=== PATIENT | female | born 1990 | race American Indian/Alaskan Native ===

== ENCOUNTER 2016-03-30 14:13 | Outpatient (CLI) | payer MEDICAID ==
[2016-03-30] MEDS ORDERED: LACTATED RINGERS 500 ML IV ONE (15:09)
[2016-03-30 15:38] VITALS: BP 107/70
[2016-03-30 15:53] LABS: Basophils % (Auto) 0.3 % (0.0-1.8); Eosinophils % (Auto) 0.5 % (0.0-4.3); Hematocrit 37.2 % (30.3-42.9); Hemoglobin 12.4 gm/dl (10.1-14.3); Mean Corpuscular HGB Conc 33 % (30-34); Mean Corpuscular Hemoglobin 32 pg (28-32); Mean Corpuscular Volume 95 fl (79-97); Platelet Count 239 K/mm3 (140-440); Red Blood Count 3.93 M/mm3 (3.65-5.03); Red Cell Distribution Width 13.9 % (13.2-15.2); White Blood Count 11.7 K/mm3 (4.5-11.0)
[2016-03-30] MEDS ORDERED: LACTATED RINGERS 1,000 ML IV SCH (16:00)
[2016-03-30 16:34] LABS: Urine Drugs of Abuse Note Disclamer
[2016-03-30 16:57] LABS: Bilirubin,Urine NEG (Negative); Blood,Urine NEG (Negative); Ketones,Urine NEG (Negative); Leukocyte Esterase,Urine MOD (Negative); Mucus,Urine 1+ /HPF; Nitrite,Urine NEG (Negative); Protein,Urine <15 mg/dL mg/dL (Negative); Urobilinogen,Urine < 2.0 mg/dL (<2.0)
[2016-03-30] MEDS ORDERED: BRETHINE SUB-Q ONE (17:30)
--- NOTE | 2016-03-31 11:09 | Ultrasound Report ---
OB ULTRASOUND GREATER THAN 14 WEEKS INDICATION: No care. COMPARISON: None similar at this institution. TECHNIQUE: Transabdominal grayscale ultrasound with Doppler interrogation. Gestation: [place] Position: Cephalic Amniotic Fluid: WNL (7-24 cm) ELENA = 21.2 cm Placenta: Fundal Placental Grade: I Heart Rate: 130 BPM Cervical length: 3.1 cm (Normal > 3 cm) NEUROANATOMY VISUALIZED: Choroid Plexus Cisterna Magnum Cerebellum Lateral Ventricle ANATOMY VISUALIZED: Stomach Kidneys Bladder Diaphragm 4 Chamber Heart Heart 3 Vessel Cord Abd. Cord Insert SPINE VISUALIZED: Longitudinal Transverse BPD: 7.8 cm = 31 w 3 d HC: 28.7 cm = 31 w 4 d AC: 28.5 cm = 32 w 4 d FL: 6,3 cm = 32 w 4 d HC/AC Ratio: 1.0 Cephalic Index: 82.5 Estimated Weight: 1959 grams LMP: 07/31/15 Clinical age = 34 w 5 d EDC: 05-06-16 US Gest. Age = 32 w 0 d EDC: 05-25-16 CONCLUSION: Single, viable intrauterine gestation with ultrasound estimated age of 32 weeks and zero days and EDC of 05/25/2016, currently in cephalic lie with details, as above. Please also correlate clinically for a little under 3 weeks discrepancy with the estimated clinical age. Thank you for the opportunity to participate in this patient's care.
== END 2016-03-30 19:24 | disposition home or self-care (01) ==
LOC: TRG 14:13
PROVIDERS: ATTEND Obstetrics & Gynecology
DX: O47.03 False labor before 37 completed weeks of gestation, third trimester (principal); Z3A.34 34 weeks gestation of pregnancy
CPT/HCPCS: 36415; 59025; 76805; 80307; 81001; 85025; 86850; 86900; 86901; 96360; 96372; J3105; J7120

== ENCOUNTER 2016-05-03 16:07 | Inpatient (IN) | payer MEDICAID ==
[2016-05-03] MEDS ORDERED: LACTATED RINGERS 500 ML IV ONE (16:38)
[2016-05-03] MEDS ORDERED: LACTATED RINGERS 1,000 ML ONE (17:38)
[2016-05-03] MEDS ORDERED: PITOCin/NS 20 UNIT/1000ML DRIP 20,000 MILLIUNITS/1,000 ML BAG IV ONE (17:39)
[2016-05-03] MEDS ORDERED: POLYCILLIN/NS 2 GM/100 ML 2 GM/100 ML BAG IV ONE ×2 (17:39→17:45)
[2016-05-03 18:01] LABS: Basophils % (Auto) 0.3 % (0.0-1.8); Eosinophils % (Auto) 0.4 % (0.0-4.3); Hematocrit 36.3 % (30.3-42.9); Hemoglobin 12.2 gm/dl (10.1-14.3); Mean Corpuscular HGB Conc 34 % (30-34); Mean Corpuscular Hemoglobin 32 pg (28-32); Mean Corpuscular Volume 95 fl (79-97); Platelet Count 247 K/mm3 (140-440); Red Blood Count 3.83 M/mm3 (3.65-5.03); White Blood Count 15.1 K/mm3 (4.5-11.0)
[2016-05-03] MEDS ORDERED: PITOCin/NS 20 UNIT/1000ML DRIP 20 UNITS/1,000 ML BAG IV SCH (19:00)
[2016-05-03] MEDS ORDERED: LACTATED RINGERS 1,000 ML IV SCH (19:00)
[2016-05-03] MEDS ORDERED: XYLOCAINE 2% INFILTRATI ONE (19:03)
--- NOTE | 2016-05-03 19:08 | History and Physical Report ---
History of Present Illness Date of examination: 05/03/16 Date of admission: 05/03/16 18:04 Chief complaint: I'm in labor History of present illness: Patient is a 26 year old who presents to L&D in active labor with regular contractions. Patient has had no care and EDC is derived from recent ultrasound while at [facility] triage. Patient states that she had been living in [place] taking care of her grandmother and that the doctors there would not see her. Past History Past Medical History: no pertinent history Past Surgical History: no surgical history Social history: single, smoking, alcohol abuse - Obstetrical History Expected Date of Delivery: 05/25/16 Actual Gestation: 36 Week(s) 6 Day(s) : 2 Number of Living Children: 1 Medications and Allergies Allergies Allergy/AdvReac Type Severity Reaction Status Date / Time No Known Allergies Allergy Unverified 03/30/16 15:09 Active Meds: Active Medications Lactated Ringer's (Lactated Ringers) 1,000 mls @ 125 mls/hr IV DIRECT ALEX Oxytocin/Sodium Chloride (Pitocin/Ns 20 Unit/1000ml Drip) 20 units in 1,000 mls @ 250 mls/hr IV DIRECT ALEX Review of Systems All systems: negative Genitourinary: contractions - Vital Signs Vital signs: Vital Signs Pulse BP Pulse Ox 79 110/68 99 05/03/16 16:45 05/03/16 16:45 05/03/16 16:45 Temp Pulse Resp BP Pulse Ox 97.6 F 78 16 119/66 94 05/03/16 17:56 05/03/16 19:04 05/03/16 17:56 05/03/16 19:04 05/03/16 17:20 - Physical Exam Breasts: Positive: deferred Cardiovascular: Regular rate, Normal S1, Normal S2 Lungs: Positive: Clear to auscultation, Normal air movement Abdomen: Positive: normal appearance, soft, normal bowel sounds. Negative: distention, tenderness Vulva: both: normal Vagina: Positive: normal moisture. Negative: discharge Cervix: Negative: lesion, discharge Uterus: Positive: normal size, normal contour Adnexa: both: normal Anus/Rectum: Positive: normal perianal skin, heme negative. Negative: rectal mass, hemorrhoids Extremities: Deep Tendon Reflex Grade: Normal +2 - Obstetrical FHR: auscultation normal Cervical Dilatation: 7 Cervical Effacement Percentage: 90 station: -2 Uterine Contraction Pattern: Regular Uterine Contraction Intensity: Strong/Firm Results Result Diagrams: 05/03/16 17:50 Abnormal lab results 05/03/16 Range/Units 17:50 WBC 15.1 H (4.5-11.0) K/mm3 [place] # 0.9 H (0.0-0.8) K/mm3 Seg Neutrophils % 76.4 H (40.0-70.0) % Seg Neutrophils # 11.5 H (1.8-7.7) K/mm3 All other labs normal. Assessment and Plan IUP at 36.6 weeks by late ultrasound presents in active labor. Admit for management. AROM after treatment with antibiotics for unknown GBS. Anticipate . Will draw panel as well.
--- NOTE | 2016-05-03 19:49 | Procedure Note ---
OB Delivery Note - Delivery Date of Delivery: 05/03/16 Surgeon: SAMUEL RAM Estimated blood loss: 200cc - Vaginal Delivery presentation: vertex Delivery position: OA Intrapartum events: no care Delivery induction: none Delivery monitor: external FHT, external uterine Route of delivery: Delivery placenta: spontaneous Delivery cord: 3 umbilical vessels Episiotomy: none Delivery laceration: 1st degree Delivery repair: chromic Anesthesia: none Delivery comments: Viable female delivered over intact perineum without nuchal. Placenta delivered spontaneously and intact with 3vc. Infant placed on maternal abdomen. cord clamped and cut when done pulsing. Small laceration repaired with 3.0 chromic. Patient tolerated procedure well. - Infant A at 1 minute: 8 at 5 minutes: 9 Gender: Female (5 pounds 13 ounces)
[2016-05-03 20:45] LABS: Urine Drugs of Abuse Note Disclamer
[2016-05-03 21:21] LABS: HIV-1 Antigen p24 Non React (Non React); HIVR-1/2 Ab Non React (Non React)
[2016-05-03] MEDS ORDERED: TUCKS PAD TP ONE (21:23)
[2016-05-03] MEDS ORDERED: DERMOPLAST TP ONE (21:24)
[2016-05-03] MEDS ORDERED: ENGERIX-B IM ONE (21:53)
[2016-05-03] MEDS ORDERED: LANSINOH TP PRN (22:03)
[2016-05-03] MEDS ORDERED: PHENERGAN PR PRN (22:03)
[2016-05-03] MEDS ORDERED: TYLENOL PO PRN (22:03)
[2016-05-03] MEDS ORDERED: PHENERGAN PO PRN (22:03)
[2016-05-03] MEDS ORDERED: TUCKS PAD TP PRN (22:03)
[2016-05-03] MEDS ORDERED: ZOFRAN IV PRN (22:03)
[2016-05-03] MEDS ORDERED: SODIUM CHLORIDE FLUSH SYRINGE 10 ML IV NR (22:03)
[2016-05-03] MEDS ORDERED: NORCO 5/325 PO PRN (22:03)
[2016-05-03] MEDS ORDERED: DERMOPLAST TP PRN (22:03)
[2016-05-03] MEDS ORDERED: MILK OF MAGNESIA PO PRN (22:03)
[2016-05-03] MEDS ORDERED: DULCOLAX PR PRN (22:03)
[2016-05-03] MEDS ORDERED: BENADRYL PO PRN (22:03)
[2016-05-04] MEDS ORDERED: BOOSTRIX IM ONE (06:00)
[2016-05-04 07:44] LABS: Hematocrit 31.1 % (30.3-42.9); Hemoglobin 10.4 gm/dl (10.1-14.3)
[2016-05-04] MEDS ORDERED: PRENATAL VITAMIN PO SCH (10:00)
[2016-05-04] MEDS: COLACE PO SCH ×2 (12:21→22:24)
[2016-05-04] MEDS: MOTRIN PO SCH ×3 (12:21→22:25)
--- NOTE | 2016-05-04 22:36 | Progress Note ---
Assessment and Plan PPD 1 s/p . Doing well. Plan for discharge when okay for baby. Subjective - Subjective Date of service: 05/04/16 Interval history: Patient is a 26 year old who presents to L&D in active labor with regular contractions. Patient has had no care and EDC is derived from recent ultrasound while at [facility] triage. Patient states that she had been living in [place] taking care of her grandmother and that the doctors there would not see her. Patient reports: appetite normal, voiding normally, pain well controlled, ambulating normally Effort: doing well Objective - Vital Signs Latest vital signs: Vital Signs Temp Pulse Resp BP 05/04/16 19:30 98.6 F 70 16 109/63 05/04/16 16:42 97.9 F 76 20 94/62 05/04/16 08:24 98.3 F 76 20 94/54 05/04/16 05:05 98.5 F 70 20 109/63 05/04/16 01:20 98.9 F 76 20 109/55 Intake and Output 05/04/16 05/04/16 05/04/16 06:59 14:59 22:59 Intake Total 240 240 120 Output Total 600 Balance -360 240 120 Intake: Oral 240 120 Intake, Free Water 240 Output: Urine 600 Void 600 Other: Total, Intake Amount 120 120 Total, Output Amount 600 # Voids Void 1 1 - Exam Cardiovascular: Present: Regular rate, Normal S1, Normal S2 Lungs: Present: Clear to auscultation, Normal air movement Abdomen: Present: normal appearance, soft, normal bowel sounds Uterus: Present: normal, firm Extremities: Present: normal
[2016-05-05] MEDS: MOTRIN PO SCH ×4 (04:44→18:20)
[2016-05-05] MEDS: COLACE PO SCH (12:00)
[2016-05-05 17:31] VITALS: BP 99/54
--- NOTE | 2016-05-05 18:03 | Discharge Summary ---
Providers - Providers Date of Admission: 05/03/16 18:04 Date of discharge: 05/05/16 Attending physician: SAMUEL RAM Primary care physician: BAG FILLER Hospitalization Reason for admission: active labor, other (no care) Delivery: Episiotomy: none Other procedures: none complications: none Discharge diagnosis: IUP at term delivered [place] baby: female Hospital course: Unremarkable Condition at discharge: Good Disposition: DISCHARGED TO HOME OR SELFCARE Plan - Discharge Medications Prescriptions: HYDROcodone/APAP 5-325 [Shannon 5-325 mg TAB] 1 each PO Q6HR PRN #20 tablet PRN Reason: Pain Ibuprofen [Motrin] 600 mg PO Q6H PRN #40 tablet PRN Reason: Pain - Provider Discharge Summary Activity: routine, no sex for 6 weeks, no heavy lifting 4 weeks Diet: routine Instructions: routine Additional instructions: [] Smoking cessation referral if applicable(refer to patient education folder for contact #) [] Refer to [facility]'s [facility] Booklet Call your doctor immediately for: * Fever > 100.5 * Heavy vaginal bleeding ( >1 pad per hour) * Severe persistent headache * Shortness of breath * Reddened, hot, painful area to leg or breast * Drainage or odor from incision. * Keep incision clean and dry at all times and follow doctor's instructions regarding bathing/showering - Follow up plan Follow up: SAMUEL RAM MD [Staff Physician] - 6 Weeks
== END 2016-05-05 21:45 | disposition home or self-care (01) | DRG 775 ==
LOC: TRG 16:07 → LD 18:04 → OB 21:01
PROVIDERS: ADMIT Obstetrics & Gynecology; ATTEND Obstetrics & Gynecology
PROC: 10E0XZZ Delivery of Products of Conception, External Approach (ICD-10-PCS; principal; 2016-05-03)
PROC: 0HQ9XZZ Repair Perineum Skin, External Approach (ICD-10-PCS; 2016-05-03)
DX: O99.334 Smoking (tobacco) complicating childbirth (principal); F17.200 Nicotine dependence, unspecified, uncomplicated; O99.314 Alcohol use complicating childbirth; O70.0 First degree perineal laceration during delivery; Z3A.36 36 weeks gestation of pregnancy; Z37.0 Single live birth
CPT/HCPCS: 36415; 80307; 85014; 85018; 85025; 86592; 86706; 86762; 86850; 86900; 86901; 87806; 88307; 90471; 90715; J0290; J2590; J7120